=== PATIENT | female | born 1950 | race Caucasian/White ===

== ENCOUNTER 2019-06-13 16:13 | Emergency (ER) | payer MEDICARE, OTHER ==
[~2019-06-13] VITALS: Ht 172.7 cm; Wt 93.5 kg
[~2019-06-13 16:13] MED LIST: FLUT16SP16 NS; HYDR-3972 PO; LANTUS SQ; LISI-604 PO; METF-438 PO; MULT1TAB74 PO; PARO40TA4 PO; RAME8TAB15 PO; VITA400C19 PO; VITC500T PO
[2019-06-13 16:18] VITALS: BP 109/56
== END 2019-06-13 18:27 | disposition home or self-care (01) ==
LOC: ER 16:14
DX: S01.81XA Laceration without foreign body of other part of head, initial encounter (principal); G89.29 Other chronic pain; Z98.890 Other specified postprocedural states; Z88.8 Allergy status to other drugs, medicaments and biological substances; Z79.4 Long term (current) use of insulin; Z79.84 Long term (current) use of oral hypoglycemic drugs; Z79.899 Other long term (current) drug therapy; W01.0XXA Fall on same level from slipping, tripping and stumbling without subsequent striking against object, initial encounter; Y93.01 Activity, walking, marching and hiking; Y92.89 Other specified places as the place of occurrence of the external cause; Y99.8 Other external cause status
CPT/HCPCS: 12011; 70450; 99284

== ENCOUNTER 2024-07-24 18:48 | Emergency (ER) | payer MEDICARE, OTHER ==
[~2024-07-24] VITALS: Ht 170.2 cm; Wt 69.3 kg
[~2024-07-24 18:48] MED LIST changes: -LISI-604 PO; +LISI5TAB22 PO; +MULT-620 PO; -MULT1TAB74 PO; +VITA-336 PO; -VITA400C19 PO
[2024-07-24 19:01] VITALS: TEMP 98.1
[2024-07-25] MEDS: ketorolac trometh 30MG/ML vial 30 MG/ML VIAL IM ONE (00:30)
[2024-07-25 00:32] VITALS: BP 133/88; PULSE 74; RESP 17; O2SAT 98
== END 2024-07-25 00:34 | disposition home or self-care (01) ==
LOC: ER 18:49
DX: S80.01XA Contusion of right knee, initial encounter (principal); M25.461 Effusion, right knee; Z88.8 Allergy status to other drugs, medicaments and biological substances; Z79.899 Other long term (current) drug therapy; Z79.4 Long term (current) use of insulin; Z79.84 Long term (current) use of oral hypoglycemic drugs; W19.XXXA Unspecified fall, initial encounter; Y93.89 Activity, other specified; Y92.89 Other specified places as the place of occurrence of the external cause; Y99.8 Other external cause status
CPT/HCPCS: 73564; 96372; 99283; J1885